=== PATIENT | male | born 1995 | race Caucasian/White ===

== ENCOUNTER 2019-03-25 13:15 | Emergency (ER) | payer SELFPAY ==
[2019-03-25] MEDS: KETOROLAC 30 MG INJ IM (14:12)
== END 2019-03-25 15:07 | disposition home or self-care (01) ==
LOC: FTE 15:07
DX: M79.12 Myalgia of auxiliary muscles, head and neck (principal); R40.2142 Coma scale, eyes open, spontaneous, at arrival to emergency department; R40.2252 Coma scale, best verbal response, oriented, at arrival to emergency department; R40.2362 Coma scale, best motor response, obeys commands, at arrival to emergency department; F17.210 Nicotine dependence, cigarettes, uncomplicated
CPT/HCPCS: 96372; 99284-25